=== PATIENT | male | born 1990 | race Caucasian/White ===

== ENCOUNTER 2017-04-09 18:05 | Emergency (ER) | payer OTHER ==
[2017-04-09 18:13] VITALS: BP 146/91; PULSE 65; TEMP 98.1; BMI 27.4
[2017-04-09] MEDS ORDERED: DIPHTH,PERTUSS(ACELL),TET 0.5 ML DISP.SYRIN IM ONE (18:46)
--- NOTE | 2017-04-09 19:23 | PDOC ---
History of Present Illness - General Chief Complaint: Injury Stated Complaint: LACERATION Time Seen by Provider: 04/09/17 18:43 History Source: Patient Exam Limitations: No Limitations - History of Present Illness Initial Comments: 04/09/17 19:27 CHIEF COMPLAINT: Metal Nail through and through right second finger removed prior to arrival HISTORY OF PRESENT ILLNESS: Patient is an otherwise healthy 26-year-old male work a metal nail went through and through right medial second finger patient pulled the nail out immediately and applied a pressure bandage, there is no deformity . Tetanus is not up-to-date and ordered. There is good range of motion to finger, no deformity. No active bleeding. 04/09/17 19:29 Occurred: reports: this afternoon Severity: reports: moderate Pain Location: reports: upper extremity Past History - Past Medical History Allergies/Adverse Reactions: Allergies Allergy/AdvReac Type Severity Reaction Status Date / Time No Known Allergies Allergy Verified 04/09/17 18:12 Home Medications: Ambulatory Orders Amox-Tr/K Cl [Augmentin - 875Mg Tablet] 1 tab PO BID #10 tablet 04/09/17 Ibuprofen [Motrin -] 600 mg PO QID #28 tablet 04/09/17 Other medical history: NONE - Psycho/Social/Smoking Cessation Hx Anxiety: No Suicidal Ideation: No Smoking History: Never smoked Hx Alcohol Use: No Drug/Substance Use Hx: No Substance Use Type: None Review of Systems - Review of Systems Constitutional: No: Symptoms Reported Respiratory: No: Symptoms reported Cardiac (ROS): No: Symptoms Reported Integumentary: Yes: Other (small puncture noted to right medial second finger, above PIP and exit wound noted to volar surface under PIP). No: Symptoms Reported Neurological: No: Symptoms reported, Paresthesia Hematologic/Lymphatic: No: Symptoms Reported All Other Systems: Reviewed and Negative *Physical Exam - Vital Signs Last Vital Signs Temp Pulse Resp BP Pulse Ox 98.1 F 65 20 146/91 98 04/09/17 18:05 04/09/17 18:05 04/09/17 18:05 04/09/17 18:05 04/09/17 18:05 - Physical Exam General Appearance: Yes: Appropriately Dressed. No: Apparent Distress Respiratory/Chest: positive: Lungs Clear, Normal Breath Sounds Cardiovascular: positive: Regular Rhythm, Regular Rate Extremity: negative: Swelling, Erythema, Inflammation Integumentary: positive: Other (puncture wound noted to dorsum and volar surface of the right second finger). negative: Erythema, Swelling, Ecchymosis, Bruising Neurologic: positive: Alert, Normal Mood/Affect ED Treatment Course - RADIOLOGY Radiology Studies Ordered: Category Date Time Status FINGER(S) RIGHT [RAD] Stat Radiology 04/09/17 18:45 Ordered Medical Decision Making - Medical Decision Making 04/09/17 19:31 A/P: Patient here for evaluation of nail which went through and through right second digit was removed prior to arrival, there is small puncture wound noted there is no erythema, no edema, no deformity. Patient had pressure dressing on and no active bleeding upon arrival. Sent to x-ray, there is no acute fracture dislocation noted. Bacitracin applied to wound, tetanus given. We'll discharge patient on Augmentin, Motrin for pain, follow-up if any increased redness swelling or signs of infection *DC/Admit/Observation/Transfer Diagnosis at time of Disposition: Puncture wound of finger Qualifiers: Encounter type: initial encounter Qualified Code(s): S61.239A - Puncture wound without foreign body of unspecified finger without damage to nail, initial encounter - Discharge Dispostion Disposition: HOME Condition at time of disposition: Good Admit: No - Prescriptions Prescriptions: Amox-Tr/K Cl [Augmentin - 875Mg Tablet] 1 tab PO BID #10 tablet Ibuprofen [Motrin -] 600 mg PO QID #28 tablet - Patient Instructions Additional Instructions: Ease monitor finger for any increased redness swelling or signs of infection. Your tetanus is now up to date. Please take antibiotics as ordered. - Post Discharge Activity Work/School Note: Back to Work
== END 2017-04-09 19:43 | disposition home or self-care (01) ==
LOC: JERFT 18:05
PROC: 3E0234Z Introduction of Serum, Toxoid and Vaccine into Muscle, Percutaneous Approach (ICD-10-PCS; principal; 2017-04-09)
DX: S61.230A Puncture wound without foreign body of right index finger without damage to nail, initial encounter (principal); W45.0XXA Nail entering through skin, initial encounter; Y93.89 Activity, other specified; Y92.69 Other specified industrial and construction area as the place of occurrence of the external cause; Y99.0 Civilian activity done for income or pay
CPT/HCPCS: 73140-TC-RT; 90715; 99281-25